=== PATIENT | female | born 1950 | race Caucasian/White ===

== ENCOUNTER 2018-07-28 15:15 | Inpatient (IN) | payer MEDICARE, MEDICAID ==
[~2018-07-28] VITALS: Ht 165.1 cm; Wt 83.9 kg
[2018-07-28 16:55] LABS: CHLORIDE 102 mEq/L (98-107)
[2018-07-28 16:57] LABS: BASOPHILS % 0.3 % (0.0-2.0); EOSINOPHILS % 0.7 % (0.0-5.0); HEMATOCRIT. 31.1 % (36.0-48.0); HEMOGLOBIN. 10.5 g/dL (12.0-16.0); LYMPHOCYTES % 13.1 % (20.0-50.0); MEAN CORPUSCULAR HEMOGLOBIN 30.3 pg (28.0-32.0); MEAN CORPUSCULAR VOLUME 89.6 fL (81.0-99.0); MEAN PLATELET VOLUME 8.9 fl (7.4-10.4); MONOCYTES % 13.9 % (2.0-8.0); PLATELET 198 x1000/uL (130-400); RED BLOOD CELL COUNT 3.48 mill/uL (4.2-5.4); RED CELL DISTRIBUTION WIDTH 12.9 % (11.6-14.6)
[2018-07-28] MEDS ORDERED: TEMAZEPAM 15MG CAPSULE PO PRN (17:00)
[2018-07-28] MEDS ORDERED: BISACODYL 10MG SUPP PR PRN (17:00)
[2018-07-28] MEDS ORDERED: ONDANSETRON HCL 4MG TABLET PO PRN (17:00)
[2018-07-28] MEDS ORDERED: MAGNESIUM HYDROXIDE 400MG/5ML 30ML UDC PO PRN (17:00)
[2018-07-28 17:08] VITALS: BP 131/58
[2018-07-28] MEDS: DOCUSATE SODIUM 100MG CAPSULE PO SCH (18:40)
[2018-07-28] MEDS: HYDROCODONE/ACETAMINOPHEN 10/325MG TABLET PO PRN (19:24)
[2018-07-28 20:00] VITALS: BP 134/56
[2018-07-28] MEDS: ENOXAPARIN 30MG/0.3ML SYR SUBCUT SCH (21:00)
[2018-07-29] MEDS: PANTOPRAZOLE 40MG DR TABLET PO SCH ×2 (06:17→06:37)
[2018-07-29 08:42] VITALS: BP 137/65
[2018-07-29] MEDS: ENOXAPARIN 30MG/0.3ML SYR SUBCUT SCH ×2 (08:44→21:00)
[2018-07-29] MEDS: DOCUSATE SODIUM 100MG CAPSULE PO SCH ×2 (08:44→17:31)
[2018-07-29] MEDS: HYDROCODONE/ACETAMINOPHEN 10/325MG TABLET PO PRN (08:45)
[2018-07-29] MEDS ORDERED: IPRATROPIUM/ALBUTEROL 0.5-3(2.5)MG/3ML NEB HHN PRN (15:45)
[2018-07-29 18:53] LABS: CLARITY URINE CLEAR (CLEAR); COLOR URINE YELLOW (YELLOW); KETONES URINE NEGATIVE (NEGATIVE); LEUKOCYTE ESTERASE URINE NEGATIVE (NEGATIVE); NITRITE URINE NEGATIVE (NEGATIVE); OCCULT BLOOD URINE 1+ (NEGATIVE); PROTEIN URINE NEGATIVE (NEGATIVE); SPECIFIC GRAVITY URINE 1.006 (1.005-1.030)
[2018-07-29 20:00] VITALS: BP 116/58
[2018-07-30] MEDS: PANTOPRAZOLE 40MG DR TABLET PO SCH (06:29)
[2018-07-30] MEDS: DOCUSATE SODIUM 100MG CAPSULE PO SCH ×2 (07:51→17:00)
[2018-07-30] MEDS: HYDROCODONE/ACETAMINOPHEN 10/325MG TABLET PO PRN (07:51)
[2018-07-30] MEDS: ENOXAPARIN 30MG/0.3ML SYR SUBCUT SCH ×2 (07:51→21:00)
[2018-07-30 08:22] VITALS: BP 133/67
[2018-07-30 08:22] LABS: BASOPHILS % 0.4 % (0.0-2.0); EOSINOPHILS % 1.1 % (0.0-5.0); HEMATOCRIT. 29.5 % (36.0-48.0); LYMPHOCYTES % 21.1 % (20.0-50.0); MEAN CORPUSCULAR HEMOGLOBIN 30.5 pg (28.0-32.0); MEAN CORPUSCULAR VOLUME 90.2 fL (81.0-99.0); MEAN PLATELET VOLUME 8.5 fl (7.4-10.4); MONOCYTES % 14.4 % (2.0-8.0); PLATELET 256 x1000/uL (130-400); RED BLOOD CELL COUNT 3.27 mill/uL (4.2-5.4); RED CELL DISTRIBUTION WIDTH 13.2 % (11.6-14.6)
[2018-07-30 08:30] LABS: CHLORIDE 104 mEq/L (98-107)
[2018-07-30 08:40] LABS: LDL CHOLESTEROL 95 mg/dL (5-100)
[2018-07-30 08:42] LABS: HDL CHOLESTEROL 34 mg/dL (40-59)
[2018-07-30 08:43] LABS: PHOSPHORUS 2.6 mg/dL (2.5-4.9); TOTAL IRON BINDING CAPACITY 166 ug/dL (250-450)
[2018-07-30 09:18] LABS: FERRITIN 250 ng/mL (10-291)
[2018-07-30 10:27] LABS: FOLIC ACID (FOLATE) SERUM >20 ng/mL ng/mL (>5.38)
[2018-07-30 10:39] LABS: VITAMIN B12 SERUM 485 pg/mL (211-911)
[2018-07-30] MEDS: CYANOCOBALAMIN 1000MCG/ML VIAL IM SCH ×2 (12:00→12:46)
[2018-07-30] MEDS ORDERED: FERROUS SULFATE 325MG TABLET PO SCH (13:00)
[2018-07-30 20:00] VITALS: BP 120/60
[2018-07-30] MEDS ORDERED: IRON SUCROSE COMPLEX 100 MG in SODIUM CHLORIDE 0.9% 100 ML IV SCH (21:00)
[2018-07-31 07:14] LABS: HEMATOCRIT. 26.8 % (36.0-48.0); HEMOGLOBIN. 9.1 g/dL (12.0-16.0); MEAN CORPUSCULAR HEMOGLOBIN 30.5 pg (28.0-32.0); MEAN CORPUSCULAR VOLUME 89.5 fL (81.0-99.0); MEAN PLATELET VOLUME 8.4 fl (7.4-10.4); PLATELET 244 x1000/uL (130-400); RED BLOOD CELL COUNT 2.99 mill/uL (4.2-5.4); RED CELL DISTRIBUTION WIDTH 13.3 % (11.6-14.6)
[2018-07-31 07:35] LABS: CHLORIDE 106 mEq/L (98-107)
[2018-07-31 08:05] VITALS: BP 173/80
[2018-07-31 08:06] VITALS: BP 121/70
[2018-07-31] MEDS: CYANOCOBALAMIN 1000MCG/ML VIAL IM SCH (08:38)
[2018-07-31] MEDS: FAMOTIDINE 20MG TABLET PO SCH ×2 (08:39→20:05)
[2018-07-31] MEDS: DOCUSATE SODIUM 100MG CAPSULE PO SCH ×2 (08:39→16:44)
[2018-07-31] MEDS: HYDROCODONE/ACETAMINOPHEN 5/325MG TABLET PO PRN (08:40)
[2018-07-31] MEDS: ENOXAPARIN 30MG/0.3ML SYR SUBCUT SCH ×2 (08:42→20:05)
[2018-07-31] MEDS ORDERED: CYANOCOBALAMIN 1000MCG/ML VIAL IM NR (09:30)
[2018-07-31] MEDS: FERROUS SULFATE 325MG TABLET PO SCH ×2 (12:17→16:44)
[2018-07-31 12:45] LABS: PLATELET ESTIMATE NORMAL
[2018-07-31] MEDS: ACETAMINOPHEN 325MG TABLET PO PRN (19:42)
[2018-07-31 20:00] VITALS: BP 106/58
[2018-08-01 08:00] VITALS: BP 131/59
[2018-08-01] MEDS: FERROUS SULFATE 325MG TABLET PO SCH ×3 (08:46→16:18)
[2018-08-01] MEDS: DOCUSATE SODIUM 100MG CAPSULE PO SCH ×2 (08:46→16:18)
[2018-08-01] MEDS: CYANOCOBALAMIN 1000MCG TABLET PO SCH (08:46)
[2018-08-01] MEDS: ENOXAPARIN 30MG/0.3ML SYR SUBCUT SCH (08:46)
[2018-08-01] MEDS: ACETAMINOPHEN 325MG TABLET PO PRN ×2 (08:52→21:26)
[2018-08-01] MEDS: FAMOTIDINE 20MG TABLET PO SCH ×2 (08:57→21:25)
[2018-08-01 20:00] VITALS: BP 133/72
[2018-08-02 07:16] LABS: BASOPHILS % 0.6 % (0.0-2.0); EOSINOPHILS % 3.1 % (0.0-5.0); HEMATOCRIT. 28.5 % (36.0-48.0); HEMOGLOBIN. 9.6 g/dL (12.0-16.0); LYMPHOCYTES % 20.5 % (20.0-50.0); MEAN CORPUSCULAR HEMOGLOBIN 30.3 pg (28.0-32.0); MEAN CORPUSCULAR VOLUME 89.3 fL (81.0-99.0); MEAN PLATELET VOLUME 7.7 fl (7.4-10.4); MONOCYTES % 11.7 % (2.0-8.0); NEUTROPHILS % 64.1 % (40.0-76.0); PLATELET 351 x1000/uL (130-400); RED BLOOD CELL COUNT 3.19 mill/uL (4.2-5.4); RED CELL DISTRIBUTION WIDTH 13.2 % (11.6-14.6)
[2018-08-02 07:38] LABS: CHLORIDE 105 mEq/L (98-107)
[2018-08-02 07:59] VITALS: BP 117/60
[2018-08-02] MEDS: ASPIRIN 81MG TABLET PO SCH (08:07)
[2018-08-02] MEDS: FERROUS SULFATE 325MG TABLET PO SCH ×3 (08:07→17:05)
[2018-08-02] MEDS: CYANOCOBALAMIN 1000MCG TABLET PO SCH (08:07)
[2018-08-02] MEDS: HYDROCODONE/ACETAMINOPHEN 5/325MG TABLET PO PRN (08:07)
[2018-08-02] MEDS: FAMOTIDINE 20MG TABLET PO SCH ×2 (08:08→20:48)
[2018-08-02] MEDS: DOCUSATE SODIUM 100MG CAPSULE PO SCH ×2 (08:09→17:05)
[2018-08-02] MEDS: ACETAMINOPHEN 325MG TABLET PO PRN ×2 (14:18→20:49)
[2018-08-02 20:00] VITALS: BP 123/54
[2018-08-02] MEDS ORDERED: TEMAZEPAM 15MG CAPSULE PO PRN (21:00)
[2018-08-03] MEDS: ACETAMINOPHEN 325MG TABLET PO PRN ×3 (02:54→18:24)
[2018-08-03 04:19] LABS: 25-HYDROXY VITAMIN D3 27 ng/mL (.)
[2018-08-03] MEDS: HYDROCODONE/ACETAMINOPHEN 5/325MG TABLET PO PRN (07:56)
[2018-08-03 08:00] VITALS: BP 115/60
[2018-08-03] MEDS: DOCUSATE SODIUM 100MG CAPSULE PO SCH ×2 (09:00→17:00)
[2018-08-03] MEDS: ASPIRIN 81MG TABLET PO SCH (09:10)
[2018-08-03] MEDS: CYANOCOBALAMIN 1000MCG TABLET PO SCH (09:10)
[2018-08-03] MEDS: FERROUS SULFATE 325MG TABLET PO SCH ×3 (09:10→17:12)
[2018-08-03] MEDS: FAMOTIDINE 20MG TABLET PO SCH ×2 (09:10→20:43)
[2018-08-03] MEDS ORDERED: HYDROCODONE/ACETAMINOPHEN 5/325MG TABLET PO PRN (13:45)
[2018-08-03] MEDS ORDERED: ERGOCALCIFEROL 50000UNITS CAPSULE PO SCH (17:00)
[2018-08-03 20:25] VITALS: BP 122/62
[2018-08-04] MEDS: ACETAMINOPHEN 325MG TABLET PO PRN ×4 (00:06→23:29)
[2018-08-04 06:49] LABS: BASOPHILS % 0.8 % (0.0-2.0); EOSINOPHILS % 3.7 % (0.0-5.0); LYMPHOCYTES % 20.8 % (20.0-50.0); MEAN CORPUSCULAR HEMOGLOBIN 29.8 pg (28.0-32.0); MEAN CORPUSCULAR VOLUME 89.4 fL (81.0-99.0); MEAN PLATELET VOLUME 7.6 fl (7.4-10.4); MONOCYTES % 10.7 % (2.0-8.0); PLATELET 482 x1000/uL (130-400); RED BLOOD CELL COUNT 3.36 mill/uL (4.2-5.4); RED CELL DISTRIBUTION WIDTH 13.4 % (11.6-14.6)
[2018-08-04 07:06] LABS: CHLORIDE 104 mEq/L (98-107)
[2018-08-04 08:00] VITALS: BP 133/63
[2018-08-04] MEDS: DOCUSATE SODIUM 100MG CAPSULE PO SCH ×2 (08:16→16:50)
[2018-08-04] MEDS: FERROUS SULFATE 325MG TABLET PO SCH ×3 (08:16→16:52)
[2018-08-04] MEDS: CYANOCOBALAMIN 1000MCG TABLET PO SCH (08:16)
[2018-08-04] MEDS: ASPIRIN 81MG TABLET PO SCH (08:16)
[2018-08-04] MEDS: FAMOTIDINE 20MG TABLET PO SCH ×2 (08:18→20:52)
[2018-08-04] MEDS ORDERED: HYDROCODONE/ACETAMINOPHEN 5/325MG TABLET PO PRN (13:45)
[2018-08-04 20:00] VITALS: BP 110/61
[2018-08-05 06:44] LABS: CHLORIDE 105 mEq/L (98-107)
[2018-08-05 07:03] LABS: BASOPHILS % 0.4 % (0.0-2.0); EOSINOPHILS % 2.5 % (0.0-5.0); HEMATOCRIT. 28.2 % (36.0-48.0); HEMOGLOBIN. 9.6 g/dL (12.0-16.0); LYMPHOCYTES % 22.3 % (20.0-50.0); MEAN CORPUSCULAR HEMOGLOBIN 30.3 pg (28.0-32.0); MEAN CORPUSCULAR VOLUME 88.5 fL (81.0-99.0); MEAN PLATELET VOLUME 7.7 fl (7.4-10.4); MONOCYTES % 11.8 % (2.0-8.0); PLATELET 527 x1000/uL (130-400); RED BLOOD CELL COUNT 3.18 mill/uL (4.2-5.4); RED CELL DISTRIBUTION WIDTH 13.2 % (11.6-14.6)
[2018-08-05 08:01] VITALS: BP 124/54
[2018-08-05] MEDS: FAMOTIDINE 20MG TABLET PO SCH ×2 (08:47→21:02)
[2018-08-05] MEDS: DOCUSATE SODIUM 100MG CAPSULE PO SCH ×2 (08:47→16:37)
[2018-08-05] MEDS: CYANOCOBALAMIN 1000MCG TABLET PO SCH (08:48)
[2018-08-05] MEDS: FERROUS SULFATE 325MG TABLET PO SCH ×3 (08:48→16:37)
[2018-08-05] MEDS: ASPIRIN 81MG TABLET PO SCH (08:49)
[2018-08-05] MEDS: ACETAMINOPHEN 325MG TABLET PO PRN ×2 (14:48→21:02)
[2018-08-05 20:00] VITALS: BP 125/60
[2018-08-06 08:07] VITALS: BP 132/56
[2018-08-06] MEDS: CYANOCOBALAMIN 1000MCG TABLET PO SCH (08:27)
[2018-08-06] MEDS: ASPIRIN 81MG TABLET PO SCH (08:27)
[2018-08-06] MEDS: FERROUS SULFATE 325MG TABLET PO SCH ×2 (08:27→12:23)
[2018-08-06] MEDS: FAMOTIDINE 20MG TABLET PO SCH (08:27)
[2018-08-06] MEDS: ACETAMINOPHEN 325MG TABLET PO PRN ×2 (08:30→12:24)
[2018-08-06] MEDS: DOCUSATE SODIUM 100MG CAPSULE PO SCH (09:00)
[2018-08-06 09:43] VITALS: BP 132/56
== END 2018-08-06 14:00 | disposition home health service (06) | DRG 554 ==
PROVIDERS: ADMIT Physical Medicine & Rehabilitation Spinal Cord Injury Medicine; ATTEND Family Medicine Adult Medicine
DX: M17.0 Bilateral primary osteoarthritis of knee (principal); D50.9 Iron deficiency anemia, unspecified; E78.5 Hyperlipidemia, unspecified; I10 Essential (primary) hypertension; Z96.652 Presence of left artificial knee joint; Z82.49 Family history of ischemic heart disease and other diseases of the circulatory system; E55.9 Vitamin D deficiency, unspecified; E11.65 Type 2 diabetes mellitus with hyperglycemia; R11.2 Nausea with vomiting, unspecified
CPT/HCPCS: 36415; 80048; 80061; 82270; 82306; 82607; 82728; 82746; 82962; 83036; 83540; 83550; 83735; 84100; 84134; 84443; 93970; 97110; 97116; 97162; 97167; 97530; 97535; C1893; J1650; J3420; J7050

== ENCOUNTER 2019-01-12 18:35 | Inpatient (IN) | payer MEDICARE, MEDICAID ==
[~2019-01-12] VITALS: Ht 165.1 cm; Wt 84.8 kg
[2019-01-12 20:00] VITALS: BP 129/63
[2019-01-12] MEDS ORDERED: BISACODYL 10MG SUPP PR PRN (21:45)
[2019-01-12] MEDS ORDERED: MAGNESIUM HYDROXIDE 400MG/5ML 30ML UDC PO PRN (21:45)
[2019-01-12] MEDS: HYDROCODONE/ACETAMINOPHEN 10/325MG TABLET PO PRN (22:47)
[2019-01-13] MEDS: PANTOPRAZOLE 40MG DR TABLET PO SCH (06:38)
[2019-01-13 08:01] VITALS: BP 118/54
[2019-01-13 08:07] LABS: BASOPHILS % 0.3 % (0.0-2.0); EOSINOPHILS % 1.3 % (0.0-5.0); HEMATOCRIT. 26.7 % (36.0-48.0); HEMOGLOBIN. 9.1 g/dL (12.0-16.0); MEAN CORPUSCULAR HEMOGLOBIN 30.7 pg (28.0-32.0); MEAN CORPUSCULAR VOLUME 89.8 fL (81.0-99.0); MEAN PLATELET VOLUME 8.8 fl (7.4-10.4); MONOCYTES % 14.7 % (2.0-8.0); NEUTROPHILS % 70.7 % (40.0-76.0); PLATELET 183 x1000/uL (130-400); RED BLOOD CELL COUNT 2.97 mill/uL (4.2-5.4)
[2019-01-13] MEDS: DOCUSATE SODIUM 100MG CAPSULE PO SCH ×2 (08:11→16:06)
[2019-01-13] MEDS: POLYETHYLENE GLYCOL 3350 (17GM) 1 DOSE PACK PO SCH (08:11)
[2019-01-13] MEDS: HYDROCODONE/ACETAMINOPHEN 10/325MG TABLET PO PRN ×3 (08:12→21:48)
[2019-01-13 08:36] LABS: CHLORIDE 102 mEq/L (98-107)
[2019-01-13] MEDS: ENOXAPARIN 40MG/0.4ML SYR SUBCUT SCH (09:29)
[2019-01-13 18:15] LABS: CLARITY URINE CLEAR (CLEAR); COLOR URINE YELLOW (YELLOW); KETONES URINE NEGATIVE (NEGATIVE); LEUKOCYTE ESTERASE URINE TRACE (NEGATIVE); NITRITE URINE NEGATIVE (NEGATIVE); OCCULT BLOOD URINE 1+ (NEGATIVE); PH URINE 6.5 (4.5-8.0); PROTEIN URINE NEGATIVE (NEGATIVE); SPECIFIC GRAVITY URINE 1.007 (1.005-1.030)
[2019-01-13 20:00] VITALS: BP 125/60
[2019-01-14] MEDS: ACETAMINOPHEN 325MG TABLET PO PRN (04:40)
[2019-01-14] MEDS: PANTOPRAZOLE 40MG DR TABLET PO SCH (07:00)
[2019-01-14] MEDS: HYDROCODONE/ACETAMINOPHEN 10/325MG TABLET PO PRN ×3 (07:17→21:41)
[2019-01-14 07:31] LABS: HEMATOCRIT. 24.1 % (36.0-48.0); HEMOGLOBIN. 8.4 g/dL (12.0-16.0); MEAN CORPUSCULAR HEMOGLOBIN 31.3 pg (28.0-32.0); MEAN CORPUSCULAR VOLUME 90.1 fL (81.0-99.0); MEAN PLATELET VOLUME 8.4 fl (7.4-10.4); PLATELET 227 x1000/uL (130-400); RED BLOOD CELL COUNT 2.67 mill/uL (4.2-5.4); RED CELL DISTRIBUTION WIDTH 13.9 % (11.6-14.6)
[2019-01-14 08:00] VITALS: BP 111/53
[2019-01-14 08:07] LABS: FOLIC ACID (FOLATE) SERUM >20 ng/mL ng/mL (>5.38)
[2019-01-14 08:12] LABS: CHLORIDE 101 mEq/L (98-107)
[2019-01-14] MEDS: POLYETHYLENE GLYCOL 3350 (17GM) 1 DOSE PACK PO SCH (08:13)
[2019-01-14 08:19] LABS: VITAMIN B12 SERUM 561 pg/mL (211-911)
[2019-01-14] MEDS: DOCUSATE SODIUM 100MG CAPSULE PO SCH ×2 (08:20→16:50)
[2019-01-14] MEDS: ENOXAPARIN 40MG/0.4ML SYR SUBCUT SCH (08:21)
[2019-01-14 08:23] LABS: HDL CHOLESTEROL 34 mg/dL (40-59); LDL CHOLESTEROL 73 mg/dL (5-100); PHOSPHORUS 2.6 mg/dL (2.5-4.9); TOTAL IRON BINDING CAPACITY 140 ug/dL (250-450)
[2019-01-14 12:34] LABS: FERRITIN 357 ng/mL (10-291)
[2019-01-14 13:33] LABS: PLATELET ESTIMATE NORMAL
[2019-01-14] MEDS ORDERED: CYANOCOBALAMIN 1000MCG/ML VIAL IM NR (14:30)
[2019-01-14] MEDS: FERROUS SULFATE 325MG TABLET PO SCH (16:50)
[2019-01-14 20:00] VITALS: BP 121/70
[2019-01-15] MEDS: ACETAMINOPHEN 325MG TABLET PO PRN ×5 (03:54→21:02)
[2019-01-15] MEDS: PANTOPRAZOLE 40MG DR TABLET PO SCH (07:00)
[2019-01-15] MEDS: HYDROCODONE/ACETAMINOPHEN 10/325MG TABLET PO PRN ×2 (07:07→12:34)
[2019-01-15 07:48] VITALS: BP 106/49
[2019-01-15] MEDS: POLYETHYLENE GLYCOL 3350 (17GM) 1 DOSE PACK PO SCH (09:00)
[2019-01-15] MEDS: DOCUSATE SODIUM 100MG CAPSULE PO SCH ×2 (09:00→17:00)
[2019-01-15] MEDS: ENOXAPARIN 40MG/0.4ML SYR SUBCUT SCH (09:18)
[2019-01-15] MEDS: FERROUS SULFATE 325MG TABLET PO SCH ×3 (09:18→17:15)
[2019-01-15 20:00] VITALS: BP 113/55
[2019-01-16] MEDS: ACETAMINOPHEN 325MG TABLET PO PRN ×3 (01:15→15:39)
[2019-01-16] MEDS: PANTOPRAZOLE 40MG DR TABLET PO SCH (05:58)
[2019-01-16 07:59] VITALS: BP 122/53
[2019-01-16 08:00] VITALS: BP 122/53
[2019-01-16] MEDS: FERROUS SULFATE 325MG TABLET PO SCH ×3 (08:25→17:22)
[2019-01-16] MEDS: ENOXAPARIN 40MG/0.4ML SYR SUBCUT SCH (08:25)
[2019-01-16] MEDS: DOCUSATE SODIUM 100MG CAPSULE PO SCH ×2 (08:26→17:00)
[2019-01-16] MEDS: POLYETHYLENE GLYCOL 3350 (17GM) 1 DOSE PACK PO SCH (08:26)
[2019-01-16 17:22] LABS: HEMATOCRIT 23.2 % (36.0-48.0); HEMOGLOBIN 8.1 g/dL (12.0-16.0); MEAN CORPUSCULAR HEMOGLOBIN 31.4 pg (28.0-32.0); MEAN CORPUSCULAR VOLUME 89.8 fL (81.0-99.0); PLATELET 333 x1000/uL (130-400); RED BLOOD CELL COUNT 2.58 mill/uL (4.2-5.4); RED CELL DISTRIBUTION WIDTH 13.9 % (11.6-14.6)
[2019-01-16 17:29] LABS: CHLORIDE 105 mEq/L (98-107)
[2019-01-16 20:00] VITALS: BP 120/52
[2019-01-17] MEDS: ACETAMINOPHEN 325MG TABLET PO PRN ×3 (01:37→20:30)
[2019-01-17] MEDS: PANTOPRAZOLE 40MG DR TABLET PO SCH (06:12)
[2019-01-17 07:01] LABS: CHLORIDE 105 mEq/L (98-107)
[2019-01-17 07:12] LABS: BASOPHILS % 0.6 % (0.0-2.0); EOSINOPHILS % 6.1 % (0.0-5.0); HEMATOCRIT. 26.1 % (36.0-48.0); HEMOGLOBIN. 8.9 g/dL (12.0-16.0); MEAN CORPUSCULAR HEMOGLOBIN 30.9 pg (28.0-32.0); MEAN CORPUSCULAR VOLUME 90.5 fL (81.0-99.0); MEAN PLATELET VOLUME 7.7 fl (7.4-10.4); MONOCYTES % 11.4 % (2.0-8.0); NEUTROPHILS % 61.9 % (40.0-76.0); PLATELET 424 x1000/uL (130-400); RED BLOOD CELL COUNT 2.88 mill/uL (4.2-5.4); RED CELL DISTRIBUTION WIDTH 14.1 % (11.6-14.6)
[2019-01-17] MEDS: HYDROCODONE/ACETAMINOPHEN 10/325MG TABLET PO PRN ×2 (07:24→12:47)
[2019-01-17 08:21] VITALS: BP 119/43
[2019-01-17] MEDS: FERROUS SULFATE 325MG TABLET PO SCH ×3 (08:34→16:17)
[2019-01-17] MEDS: POLYETHYLENE GLYCOL 3350 (17GM) 1 DOSE PACK PO SCH (08:35)
[2019-01-17] MEDS: ENOXAPARIN 40MG/0.4ML SYR SUBCUT SCH (08:35)
[2019-01-17] MEDS: DOCUSATE SODIUM 100MG CAPSULE PO SCH ×2 (08:35→16:17)
[2019-01-17] MEDS ORDERED: HYDROCODONE/ACETAMINOPHEN 5/325MG TABLET PO PRN (14:45)
[2019-01-17 17:08] LABS: 25-HYDROXY VITAMIN D3 30 ng/mL (.)
[2019-01-17 20:00] VITALS: BP 128/62
[2019-01-18] MEDS: ACETAMINOPHEN 325MG TABLET PO PRN ×2 (03:45→13:33)
[2019-01-18] MEDS: PANTOPRAZOLE 40MG DR TABLET PO SCH (06:27)
[2019-01-18 07:30] VITALS: BP 119/57
[2019-01-18] MEDS: HYDROCODONE/ACETAMINOPHEN 10/325MG TABLET PO PRN (07:33)
[2019-01-18] MEDS: POLYETHYLENE GLYCOL 3350 (17GM) 1 DOSE PACK PO SCH (09:00)
[2019-01-18] MEDS: DOCUSATE SODIUM 100MG CAPSULE PO SCH ×2 (09:00→16:22)
[2019-01-18] MEDS: FERROUS SULFATE 325MG TABLET PO SCH ×3 (10:10→16:22)
[2019-01-18] MEDS: ENOXAPARIN 40MG/0.4ML SYR SUBCUT SCH (10:11)
[2019-01-18 20:00] VITALS: BP 137/52
[2019-01-18] MEDS ORDERED: ERGOCALCIFEROL 50000UNITS CAPSULE PO SCH (22:00)
[2019-01-19] MEDS: PANTOPRAZOLE 40MG DR TABLET PO SCH ×3 (05:22→05:29)
[2019-01-19 07:00] VITALS: BP 116/49
[2019-01-19] MEDS: HYDROCODONE/ACETAMINOPHEN 10/325MG TABLET PO PRN (07:53)
[2019-01-19] MEDS: FERROUS SULFATE 325MG TABLET PO SCH ×3 (08:39→16:31)
[2019-01-19] MEDS: ENOXAPARIN 40MG/0.4ML SYR SUBCUT SCH (08:40)
[2019-01-19] MEDS: DOCUSATE SODIUM 100MG CAPSULE PO SCH ×2 (09:00→16:31)
[2019-01-19] MEDS: POLYETHYLENE GLYCOL 3350 (17GM) 1 DOSE PACK PO SCH (09:00)
[2019-01-19] MEDS: ACETAMINOPHEN 325MG TABLET PO PRN (14:37)
[2019-01-19 20:00] VITALS: BP 112/47
[2019-01-19 21:52] LABS: HEMATOCRIT 24.2 % (36.0-48.0); HEMOGLOBIN 8.4 g/dL (12.0-16.0); MEAN CORPUSCULAR HEMOGLOBIN 31.1 pg (28.0-32.0); PLATELET 491 x1000/uL (130-400); RED BLOOD CELL COUNT 2.69 mill/uL (4.2-5.4); RED CELL DISTRIBUTION WIDTH 13.9 % (11.6-14.6)
[2019-01-19 21:53] LABS: CHLORIDE 108 mEq/L (98-107)
[2019-01-20] MEDS: ENOXAPARIN 40MG/0.4ML SYR SUBCUT SCH (08:21)
[2019-01-20] MEDS: DOCUSATE SODIUM 100MG CAPSULE PO SCH ×2 (08:21→17:00)
[2019-01-20] MEDS: FERROUS SULFATE 325MG TABLET PO SCH ×3 (08:21→17:05)
[2019-01-20] MEDS: HYDROCODONE/ACETAMINOPHEN 10/325MG TABLET PO PRN (08:56)
[2019-01-20 09:39] VITALS: BP 114/51
[2019-01-20] MEDS: ACETAMINOPHEN 325MG TABLET PO PRN ×2 (14:50→21:56)
[2019-01-20 20:00] VITALS: BP 119/41
[2019-01-21 08:08] VITALS: BP 117/63
[2019-01-21] MEDS: ENOXAPARIN 40MG/0.4ML SYR SUBCUT SCH (09:00)
[2019-01-21] MEDS: DOCUSATE SODIUM 100MG CAPSULE PO SCH (09:00)
[2019-01-21] MEDS: FERROUS SULFATE 325MG TABLET PO SCH ×2 (09:03→12:23)
[2019-01-21 10:16] VITALS: BP 18/117
[2019-01-21 11:29] VITALS: BP 132/67
== END 2019-01-21 13:50 | disposition home health service (06) | DRG 554 ==
PROVIDERS: ADMIT Physical Medicine & Rehabilitation Spinal Cord Injury Medicine; ATTEND Family Medicine Adult Medicine
DX: M17.11 Unilateral primary osteoarthritis, right knee (principal); E87.1 Hypo-osmolality and hyponatremia; S83.013A Lateral subluxation of unspecified patella, initial encounter; Z96.653 Presence of artificial knee joint, bilateral; E78.5 Hyperlipidemia, unspecified; D64.9 Anemia, unspecified; R53.81 Other malaise; E53.8 Deficiency of other specified B group vitamins; R73.9 Hyperglycemia, unspecified; K59.00 Constipation, unspecified; G89.29 Other chronic pain; S83.011A Lateral subluxation of right patella, initial encounter; X58.XXXA Exposure to other specified factors, initial encounter; Y93.89 Activity, other specified; Y92.89 Other specified places as the place of occurrence of the external cause; Y99.8 Other external cause status
CPT/HCPCS: 36415; 71045; 80048; 80061; 81003; 82270; 82306; 82607; 82728; 82746; 83540; 83550; 83735; 84100; 84134; 84443; 85027; 93970; 97110; 97116; 97162; 97166; 97530; 97535; J1650; J3420